=== PATIENT | female | born 1955 | race Caucasian/White ===

== ENCOUNTER 2021-04-17 06:12 | Day surgery (SDC) | payer MEDICARE ==
[~2021-04-17] VITALS: Ht 165.1 cm; Wt 92.0 kg
[2021-04-17] MEDS ORDERED: VENL150T PO (06:55)
[2021-04-17] MEDS ORDERED: LEVO75TA5 PO (06:55)
[2021-04-17] MEDS ORDERED: ASPI81TA45 PO (06:55)
[2021-04-17] MEDS ORDERED: PANT20TA4 PO (06:55)
[2021-04-17] MEDS ORDERED: PILO5TAB13 PO (06:55)
[2021-04-17] MEDS ORDERED: CHOL10003 PO (06:55)
[2021-04-17] MEDS ORDERED: SODIUM CHLORIDE 0.9% 1,000 ML IV SCH (07:00)
[2021-04-17 07:07] LABS: BASOPHILS % (AUTO) 1 % (0-1); EOSINOPHILS % (AUTO) 3 % (1-7); LYMPHOCYTES % (AUTO) 33 % (22-44); MEAN CORPUSCULAR HEMOGLOBIN 30.2 pg (27.0-34.8); MEAN CORPUSCULAR HGB CONC 33.6 g/dL (32.4-35.8); MEAN PLATELET VOLUME 9.2 fL (7.4-10.4); MONOCYTES % (AUTO) 10 % (2-9); NEUTROPHILS % (AUTO) 53 % (42-75); PLATELET COUNT 204 x10^3/uL (130-400); RED CELL DISTRIBUTION WIDTH 13.2 % (9.6-15.2)
[2021-04-17 07:16] LABS: ALANINE AMINOTRANSFERASE 39 U/L (12-78); ALBUMIN 3.8 g/dL (3.4-5.0); ANION GAP 3 mmol/L (5-15); CALCIUM 9.1 mg/dL (8.5-10.1); CHLORIDE 111 mmol/L (98-107); CREATININE 1.07 mg/dL (0.55-1.02)
[2021-04-17] MEDS ORDERED: MIDAZOLAM 1 MG/ML, 2ML ONE (07:18)
[2021-04-17] MEDS ORDERED: FENTANYL PF 100 MCG/2ML ONE (07:18)
[2021-04-17] MEDS ORDERED: LIDOCAINE 1%, 20ML ONE (07:19)
[2021-04-17] MEDS ORDERED: ISOPROTERENOL 0.2MG/ML, 5ML ONE (07:19)
[2021-04-17 07:27] LABS: ALKALINE PHOSPHATASE 90 U/L (45-117); BILIRUBIN,TOTAL 0.4 mg/dL (0.2-1.0)
[2021-04-17 07:28] LABS: PROTHROMBIN TIME 10.7 Seconds (9.6-11.5)
[2021-04-17] MEDS ORDERED: PILOCARPINE HCL PO SCH (09:30)
[2021-04-17] MEDS ORDERED: PANTOPRAZOLE 20MG TABLET PO SCH (21:00)
[2021-04-18] MEDS ORDERED: LEVOTHYROXINE 75 MCG TABLET PO SCH (09:00)
[2021-04-18] MEDS ORDERED: CHOLECALCIFEROL 1,000 UNIT TABLET PO SCH (09:00)
[2021-04-18] MEDS ORDERED: ASPIRIN 81 MG TABLET EC PO SCH (09:00)
[2021-04-18] MEDS ORDERED: TEMPLATE NON-FORMULARY MED. (Venlafaxine Hcl** (Venlafaxine Hcl Er**) 150 MG) PO SCH (09:00)
== END 2021-04-17 12:39 | disposition home or self-care (01) ==
LOC: CACL 06:12
PROVIDERS: ATTEND Internal Medicine Cardiovascular Disease
DX: I47.1 Supraventricular tachycardia (principal); I25.10 Atherosclerotic heart disease of native coronary artery without angina pectoris; G35 Multiple sclerosis; Z79.01 Long term (current) use of anticoagulants; Z79.890 Hormone replacement therapy; Z79.891 Long term (current) use of opiate analgesic; Z79.899 Other long term (current) drug therapy; Z87.891 Personal history of nicotine dependence; Z88.2 Allergy status to sulfonamides; Z82.49 Family history of ischemic heart disease and other diseases of the circulatory system; Z80.3 Family history of malignant neoplasm of breast; Z80.0 Family history of malignant neoplasm of digestive organs
CPT/HCPCS: 36415; 71046; 80053; 84443; 85025; 85610; 85730; 86850; 86900; 93005; 93613; 93621; 93623; 93653; C1730; C1766; C1894; C2630; J2250; J3010